=== PATIENT | female | born 1975 | race Hispanic/Latino ===

== ENCOUNTER 2017-04-24 08:27 | Outpatient (CLI) | payer OTHER ==
[2017-04-24] MEDS ORDERED: PROVENTIL IH ONE (08:43)
== END 2017-04-24 08:28 | disposition home or self-care (01) ==
LOC: PF 08:27
PROVIDERS: ATTEND Internal Medicine
DX: R06.02 Shortness of breath (principal); M54.5 Low back pain; M54.2 Cervicalgia; G56.00 Carpal tunnel syndrome, unspecified upper limb
CPT/HCPCS: 94060; 94640; 94729